=== PATIENT | female | born 1960 | race Caucasian/White ===

== ENCOUNTER → 2018-06-29 | Outpatient (CLI) | payer OTHER ==
[2018-06-29 14:02] LABS: Free Thyroxine 1.02 ng/dL (0.70-1.60)
[2018-06-29 14:08] LABS: Thyroid Stimulating Hormone 0.724 uIU/mL (0.360-4.800)
== END | disposition home or self-care (01) ==
LOC: LAB 13:33 → LAB SHORT 13:33
PROVIDERS: Hospitalist
DX: R00.2 Palpitations (principal)
CPT/HCPCS: 84439; 84443

== ENCOUNTER → 2021-03-31 | Outpatient (CLI) | payer OTHER | END | disposition home or self-care (01) | LOC: LAB SHORT 10:35 | DX: R31.9 Hematuria, unspecified (principal) | CPT/HCPCS: 87086 ==

== ENCOUNTER 2022-04-28 08:38 | Day surgery (SDC) | payer BC, OTHER ==
[~2022-04-28] VITALS: Ht 167.6 cm; Wt 55.2 kg
[2022-04-28] MEDS ORDERED: ESCI10 (09:08)
[2022-04-28] MEDS ORDERED: MELA3 (09:08)
[2022-04-28] MEDS ORDERED: LETR2.5 (09:08)
== END 2022-04-28 10:56 | disposition home or self-care (01) ==
LOC: ORSCSDS 08:38
PROVIDERS: Student in an Organized Health Care Education/Training Program
PROC: 0DBL8ZX Excision of Transverse Colon, Via Natural or Artificial Opening Endoscopic, Diagnostic (ICD-10-PCS; principal; 2022-04-28 10:00)
PROC: 0DBN8ZX Excision of Sigmoid Colon, Via Natural or Artificial Opening Endoscopic, Diagnostic (ICD-10-PCS; principal; 2022-04-28 10:00)
PROC: 0DBH8ZX Excision of Cecum, Via Natural or Artificial Opening Endoscopic, Diagnostic (ICD-10-PCS; principal; 2022-04-28 10:00)
DX: Z12.11 Encounter for screening for malignant neoplasm of colon (principal); D12.0 Benign neoplasm of cecum; D12.5 Benign neoplasm of sigmoid colon; K64.4 Residual hemorrhoidal skin tags; Z80.0 Family history of malignant neoplasm of digestive organs; F32.A Depression, unspecified; Z85.3 Personal history of malignant neoplasm of breast; Z79.899 Other long term (current) drug therapy
CPT/HCPCS: 88305; J2704; J7120

== ENCOUNTER → 2022-05-17 | Outpatient (CLI) | payer BC, OTHER ==
[~2022-05-17] MED LIST: ESCI10; LETR2.5; MELA3
== END | disposition home or self-care (01) ==
LOC: LAB SHORT 11:11 → PLD 11:11
DX: L82.1 Other seborrheic keratosis (principal)
CPT/HCPCS: 88305